=== PATIENT | female | born 1995 | race Caucasian/White ===

== ENCOUNTER 2017-02-18 09:35 | Emergency (ER) | payer BC, OTHER ==
[2017-02-18 10:23] VITALS: BP 112/68
--- NOTE | 2017-02-18 12:16 | UC ---
Peter Christensen Thomas, [facility] on 02/18/17 at 1110 . HPI Febrile Illness - HPI Summary HPI Summary: The pt is a 21 y/o F presenting to [facility] c/o a febrile illness (Tmax 103) with sore throat, myalgia, and chills. These symptoms began yesterday morning but worsened today. The pt rates the pain 8/10. Her highest temperature yesterday was 101 and her highest today is 103 this morning. Her temperature at [facility] is 101.7. The pain is aggravated and alleviated by nothing. The patient has treated the pain with Tylenol [employer] but this has not alleviated symptoms. She denies recent exposure to individuals with strep throat or mononucleosis. Pt additionally c/o eye drainage, neck soreness, ear drainage, nasal congestion, nausea, and fatigue. Pt denies dysphagia, cough, vomiting, diarrhea, and rash. PMHx: previously healthy. PSHx: none. SHx: no smoking, occasional alcohol use, no illicit drug use. FHx: [place], [place], she is a student at [employer]. She has not yet had a flu shot. She has had Strep in the past. MD Note: VS Stable. Pulse 144. PulseOx 99. 8/10 throat discomfort. Temp 101.7. Visit history non-contributory. Nurses Note: high temp up to 103. has had sore throat, body aches and chills. sx started yesterday but worsened today. she has taken tylenol cold pills for the sx but the medication has not helped. - History of Current Complaint Chief Complaint: UCGeneralIllness Time Seen by Provider: 02/18/17 11:03 Hx Obtained From: Patient Hx Last Menstrual Period: 3 weeks ago, on control Onset/Duration: Started Days Ago - onset of fever yesterday, Still Present Timing: Constant Pain Intensity: 8 Pain Scale Used: 0-10 Numeric Aggravating Factors: Nothing Alleviating Factors: Nothing Associated Signs and Symptoms: Chills, Drainage - to ears, eyes, Myalgia, Nausea , Sore Throat, Other: - POS: neck soreness, nasal congestion, fatigue. - Allergy/Home Medications Allergies/Adverse Reactions: Allergies Allergy/AdvReac Type Severity Reaction Status Date / Time No Known Allergies Allergy Verified 02/18/17 10:23 Home Medications: Home Medications Acetaminophen TAB* [Tylenol TAB*] 650 mg PO Q4H PRN 02/18/17 [History Confirmed 02/18/17] Dextromethorphan-Phenylephrine [Cold Head Congestion Dayt] 1 tab PO ONCE [History Confirmed 02/18/17] Oral Control 1 tab PO DAILY 02/18/17 [History Confirmed 02/18/17] PMH/Surg Hx/FS Hx/Imm Hx Previously Healthy: Yes Cardiovascular History: Denies: Hx Myocardial Infarction Respiratory History: Denies: Hx Chronic Obstructive Pulmonary Disease (COPD) - Surgical History Surgery Procedure, Year, and Place: Dental surgeries Infectious Disease History: No Infectious Disease History: Denies: Traveled Outside the [place] in Last 30 Days - Family History Known Family History: Positive: Diabetes, Other - POS: [place] - Social History Alcohol Use: Occasionally Substance Use Type: Reports: None Smoking Status (MU): Never Smoked Tobacco Review of Systems Constitutional: Fever, Chills, Fatigue Skin: Negative Eyes: Drainage ENT: Sore Throat, Nasal Discharge, Other - POS: ear drainage Respiratory: Negative Cardiovascular: Negative Gastrointestinal: Nausea Genitourinary: Negative Motor: Negative Neurovascular: Negative Musculoskeletal: Negative Neurological: Negative Psychological: Negative All Other Systems Reviewed And Are Negative: Yes Physical Exam Triage Information Reviewed: Yes Vital Signs: Initial Vital Signs Temp 101.7 F 02/18/17 10:20 Pulse 134 02/18/17 10:20 Resp 16 02/18/17 10:20 BP 112/68 02/18/17 10:20 Pulse Ox 99 02/18/17 10:20 Vital Signs Reviewed: Yes - Additional Comments Appearance: The patient is well-appearing, is in no pain distress, and is well- nourished. Eyes: Conjunctiva are clear. ENT: ERYTHAMATOUS, SOFT PALATE WITH EXUDATE NOTED ON BOTH TONSILS BUT ONLY MINIMAL SWELLING. The hearing is grossly normal, the pharynx is normal, and the TMs are normal. There is no muffled or hoarse voice. Neck: The neck is supple. ANTERIOR LYMPH NODE DISCOMFORT. NO EVIDENT RASH. MILD SWELLING OF THE RIGHT ANTERIOR CERVICAL LYMPH NODES. THERE IS ALSO SLIGHT TENDERNESS. NO SWELLING OR TENDERNESS OF POSTERIOR LYMPH NODES. Respiratory: The chest is nontender. The lungs are clear, there are normal breath sounds, and there is no respiratory distress. Cardiovascular: Heart is regular rate and rhythm. There is no murmur. Abdomen: The abdomen is soft and nontender. There is no organomegaly. Bowel sounds: present Musculoskeletal: Strength is intact. The patient moves all extremities. Neurological: The patient is alert. Psychological: The patient displays age appropriate behavior Skin: Negative for rashes. Course/Dx - Course Course Of Treatment: The patient comes in with a fever and a sore throat. She meets the modified [facility] criteria. Medications have been included in the original chart and reviewed. BP Reviewed. Her rapid strep was positive. Her influenza was negative. She is diagnosed with a strep throat. - Febrile Illness Differential Diagnoses: Other: - URI, influenza, strep throat - Diagnoses Clinic Provider Diagnoses: Strep throat Discharge - Discharge Plan Condition: Stable Disposition: HOME Prescriptions: Amoxicillin PO (*) [Amoxicillin 875 MG (*)] 875 mg PO BID #20 tab MDD 2 Dexamethasone TAB* [Decadron TAB*] 4 mg PO DAILY #4 tab Lidocaine 2% VISCOUS* 5 ml MT BID #1 btl Patient Education Materials: Strep Throat (ED) Referrals: No Primary Care Phys,NOPCP [Primary Care Provider] - Additional Instructions: WE DISCUSSED: You have strep throat. Begin amoxicillin, twice a day for 10 days. Go to ED for increased pain, difficulty swallowing or continued temperature for another 3 days. Also: STREP THROAT: WE DISCUSSED: YOU HAVE STREP THROAT. RECHECK FOR INCREASED PAIN, TEMPERATURE, DIFFICULTY SWALLOWING OR IF YOU ARE NOT IMPROVING IN 5 DAYS. KEEP THROAT MOIST WITH LOZENGES; TEA AND HONEY. USE WARM WATER GARGLES 3-4 TIMES A DAY. CEPASTAT LOZENGES FOR MODERATE PAIN. TYLENOL FOR DISCOMFORT. USEFUL HOME REMEDIES: WARM WATER GARGLES, WITH TSP OF SALT PER 8 OUNCES OF WATER, GARGLE FOR A FEW SECONDS AND SPIT OUT; GARGLE AND SPIT OUT; EVERY THREE HOURS. AND/OR: WARM WATER OR TEA, HONEY AND LEMON; 2-3 CUPS A DAY. FOLLOW UP IN 10 DAYS NEEDED. SOONER IF INCREASED PAIN, TEMPERATURE, DIFFICULTY BREATHING OR SWALLOWING. PRESCRIPTIONS: VISCOUS XYLOCAINE 2% #100CC SI ML WITH 15ML WATER GARGLES ONE TO THREE TIMES A DAY FOR THROAT PAIN . GARGLE AND SPIT OUT. FOR SEVERE SORE THROAT: Dexamethasone tab 4 mg Label: two tablets daily FOR TWO DAYS Disp: 4 The documentation as recorded by the Peter desir Thomas accurately reflects the service I personally performed and the decisions made by me, Rico Hatfield MD.
== END 2017-02-18 11:30 | disposition home or self-care (01) ==
LOC: UCEAST 09:35
DX: J02.0 Streptococcal pharyngitis (principal)
CPT/HCPCS: 87502; 87651; 99212; G0463